=== PATIENT | female | born 2000 | race Caucasian/White ===

== ENCOUNTER 2021-11-12 16:50 | Emergency (ER) | payer BC ==
[~2021-11-12] VITALS: Ht 170.2 cm; Wt 61.0 kg
--- NOTE | 2021-11-12 17:24 | ED Psychosocial ---
General Chief Complaint: Suicidal Ideation Risk Stated Complaint: SUICIDAL IDEATION Source: patient (TAISHA BRISCOE DO) History of Present Illness Date Seen by Provider: Nov 12, 2021 Time Seen by Provider: 16:58 Initial Comments PT ARRIVES VIA POV FROM HOME C/O PANIC ATTACKS AND SUICIDAL IDEATIONS THIS IS ONGOING PROBLEM FOR MANY MONTHS, WORSE SINCE JUNE STATES SHE STARTED WORKING IN JUNE--WORKS AT [employer] NO OTHER STRESSORS PT HAS LONGSTANDING ANXIETY AND STATES HER PANIC ATTACKS HAVE BEEN GETTING WORSE SINCE JUNE, AND WHEN SHE HAS A BAD PANIC ATTACK SHE HAS SOME SUICIDAL IDEATIONS--HAS THOUGHT OF TAKING " MANY PILLS I CAN AND DRINK MUCH WINE I CAN" PT HAS NEVER HAD AN ACTUAL ATTEMPT STATES SHE TAKES UP TO 8 BENADRYL, HYDROXYZINE AND Z-QUIL TO HELP CALM DOWN, BUT STATES SHE DOES NOT TAKE THESE MEDICATIONS TO TRY TO KILL HERSELF. SHE ALSO ADMITS TO USING MARIJUANA ON REGULAR BASIS WELL XANAX ( NOT PRESCRIBED TO HER) SHE ALSO DRINKS WINE DAILY STATES SHE CLENCHES HER JAWS ALL THE TIME STATES SYMPTOMS ARE NO DIFFERENT TONIGHT IN ANY WAY. STATES "I TALKED TO A FRIEND AND SHE SAID IT WAS TIME FOR ME TO GET HELP" HAS NEVER HAD ANY INPATIENT PSYCHIATRIC ADMITS. PT HAS BEEN GOING TO BOTH [facility] HAS BEEN ON LATUDA SINCE JANUARY AND ON ZOLOFT SINCE [facility] AND [facility] ON 10/27/21 LMP--11/11/21. NORMAL. ON OCP'S NO FEVER OR RECENT ILLNESS PT HAS HAD COVID-19 VACCINE PCP: [facility] (TAISHA BRISCOE DO) Allergies and Home Medications Allergies Coded Allergies: Cephalexin (Unverified Allergy, Mild, hives, 03/20/10) Patient Home Medication List Home Medication List Reviewed: Yes (KING TROY MD) Review of Systems Constitutional: no symptoms reported EENTM: no symptoms reported Respiratory: no symptoms reported Cardiovascular: no symptoms reported Gastrointestinal: no symptoms reported Genitourinary: no symptoms reported : No LMP: Nov 11, 2021 Control/STD Prophylaxis: BC Pills Musculoskeletal: no symptoms reported Skin: no symptoms reported Psychiatric/Neurological: See HPI (TAISHA BRISCOE DO) Past Jcydxuw-Livadb-Tufbbw Hx Patient Social History Tobacco Use?: No Use of E-Cig and/or Vaping dev: Yes E-Cig or Vaping type used: Nicotine Use of E-Cig and/or Vaping Frank: Current Everyday User Substance use?: Yes Substance type: Misuse of prescript meds, Marijuana Additional substance use comme: PT REPORTS TAKING SOMEONE ELSE'S XANAX Substance frequency: Daily Alcohol Use?: Yes Alcohol type: Wine Alcohol Frequency: Daily (TAISHA BRISCOE DO) Immunizations Up To Date Influenza Vaccine Up-to-Date: Yes; Up-to-Date First/Initial COVID19 Vaccinat: MARCH 2021 Second COVID19 Vaccination Nate: APRIL 2021 COVID19 Vaccine Classified Advertising Clerk: HENRRY (TAISHA BRISCOE DO) Past Medical History Surgery/Hospitalization HX: BIPOLAR, ANXIETY Surgeries: Yes (WISDOM TEETH, JAW SURGERY CHILD) Respiratory: No Cardiac: No Neurological: No Reproductive Disorders: No Genitourinary: No Gastrointestinal: No Musculoskeletal: No Endocrine: No HEENT: Yes (WISDOM TEETH REMOVED; JAW SURGERY CHILD) Cancer: No Psychosocial: Yes (PANIC ATTACKS) Anxiety, Bipolar Integumentary: No Blood Disorders: No (TAISHA BRISCOE DO) Physical Exam Vital Signs - First Documented 11/12/21 16:57 Temp 37.4 Pulse 112 Resp 22 B/P (MAP) 124/91 (102) Pulse Ox 96 O2 Delivery Room Air (KING TROY MD) Capillary Refill : (TAISHA BRISCOE DO) Height, Weight, BMI Height: '" Weight: lbs. oz. kg; BMI Method: General Appearance: WD/WN, no apparent distress HEENT: PERRL/EOMI, normal ENT inspection, pharynx normal Neck: normal inspection Respiratory: normal breath sounds, no respiratory distress, no accessory muscle use Cardiovascular: regular rate, rhythm, no murmur Gastrointestinal: non tender, soft Extremities: normal inspection Neurologic/Psychiatric: chiropractor assistant II-XII nml as tested, no motor/sensory deficits, alert, oriented x 3 Appearance/Memory: appropriate appearance, appropriate insight, no memory impairment Behavior/Eye Contact: cooperative, good eye contact, normal speech Thoughts/Hallucinations: no apparent hallucination Skin: normal color, warm/dry, tattoos/piercings, other (NO EXTERNAL EVIDENCE OF TRAUMA) (TAISHA BRISCOE DO) Progress/Results/Core Measures Results/Orders Lab Results (KING TROY MD) My Orders Orders - KING TROY MD Nitrofurantoin Capsule,Macro (Macrobid C (11/12/21 23:15) Alprazolam Tablet (Xanax Tablet) (11/13/21 01:30) (KING TROY MD) Medications Given in ED (KING TROY MD) Vital Signs/I&O (KING TROY MD) Progress Progress Note #1: Time: 22:34 Progress Note I assumed care of this patient from Dr. Briscoe at shift change. She was medically cleared and screening was performed by [facility]. The screener's impression is that she was still at significant risk for suicide. Inpatient admission was recommended. Patient needs her daily doses of sertraline, propranolol, and Latuda. She is being dispensed medications from her own supply by nursing staff including sertraline 125 mg, propranolol 10 mg, and Latuda 60 mg. Progress Note #2: Time: 01:30 Progress Note Admission has been accepted at [facility] in [place]. Angela Gerard will transport the patient around 0800. Patient had an episode of panic and was treated with Xanax successfully. There was suggestion of UTI on UA. Macrobid was was given. (KING TROY MD) Initial ECG Impression Date: Nov 12, 2021 Initial ECG Impression Time: 17:17 Initial ECG Rate: 88 Initial ECG Rhythm: Normal Sinus (TAISHA BRISCOE DO) Departure Impression Primary Impression: Passive suicidal ideations Additional Impressions: Chronic anxiety Urinary tract infection Qualified Codes: N39.0 - Urinary tract infection, site not specified Disposition: 65 XFER TO PSYCH HOSP/UNIT Condition: Stable Transfer Transfer Reason: Exceeds level of care Transfer Progress Notes Accepted at [facility] in [place] Transfer Time: 07:54 Transfer Facility: [facility] Method of Transfer: Angela Gerard (KING TROY MD) Departure-Patient Inst. Referrals: NASEEM ROMAN MD (PCP/Family) Primary Care Physician Patient Instructions: OUTPT MENTAL HEALTH SERVICES TAISHA BRISCOE DO Nov 12, 2021 17:24 KING TROY MD Nov 12, 2021 22:35
[2021-11-12 17:29] LABS: BASOPHILS # (AUTO) 0.1 10^3/uL (0.0-0.1); BASOPHILS % (AUTO) 1 % (0-10); CLARITY,URINE CLOUDY; COLOR,URINE YELLOW; EOSINOPHILS # (AUTO) 0.3 10^3/uL (0.0-0.3); EOSINOPHILS % (AUTO) 3 % (0-10); GLUCOSE, URINE (UA) NEGATIVE (NEGATIVE); HEMATOCRIT 42 % (35-52); HEMOGLOBIN 14.5 g/dL (11.5-16.0); KETONES,URINE TRACE (NEGATIVE); LEUKOCYTE ESTERASE ,URINE 1+ (NEGATIVE); LYMPHOCYTES # (AUTO) 2.3 10^3/uL (1.0-4.0); LYMPHOCYTES % (AUTO) 24 % (12-44); MEAN CORPUSCULAR HEMOGLOBIN 31 pg (25-34); MEAN CORPUSCULAR HGB CONC 34 g/dL (32-36); MEAN CORPUSCULAR VOLUME 90 fL (80-99); MEAN PLATELET VOLUME 9.4 fL (9.0-12.2); MONOCYTES # (AUTO) 0.4 10^3/uL (0.0-1.0); MONOCYTES % (AUTO) 5 % (0-12); NEUTROPHILS # (AUTO) 6.3 10^3/uL (1.8-7.8); NEUTROPHILS % (AUTO) 67 % (42-75); NITRITE,URINE NEGATIVE (NEGATIVE); PLATELET COUNT 332 10^3/uL (130-400); PROTEIN,URINE 1+ (NEGATIVE); WHITE BLOOD COUNT 9.4 10^3/uL (4.3-11.0)
[2021-11-12 17:34] LABS: BILIRUBIN,URINE 1+ (NEGATIVE)
[2021-11-12 17:35] LABS: BACTERIA,URINE MODERATE /HPF; RBC,URINE 0-2 /HPF
[2021-11-12 17:40] LABS: ALBUMIN 4.3 GM/DL (3.2-4.5); CHLORIDE 103 MMOL/L (98-107); POTASSIUM 4.3 MMOL/L (3.6-5.0); SODIUM 136 MMOL/L (135-145)
[2021-11-12 17:41] LABS: AMPHETAMINE SCREEN, URINE NEGATIVE (NEGATIVE); BARBITURATE SCREEN URINE NEGATIVE (NEGATIVE); BENZODIAZEPINES SCREEN URINE POSITIVE (NEGATIVE); CALCIUM 9.5 MG/DL (8.5-10.1); CANNABINOID SCREEN, URINE POSITIVE (NEGATIVE); COCAINE SCREEN URINE NEGATIVE (NEGATIVE); METHADONE STAT NEGATIVE (NEGATIVE); METHAMPHETAMINE SCREEN URINE S NEGATIVE (NEGATIVE); OPIATE SCREEN URINE NEGATIVE (NEGATIVE); OXYCODONE STAT NEGATIVE (NEGATIVE); PROPOXYPHENE STAT NEGATIVE (NEGATIVE); TRICYCLIC ANTIDEPRESSANTS SCRE NEGATIVE (NEGATIVE)
[2021-11-12 17:42] LABS: GLUCOSE 105 MG/DL (70-105)
[2021-11-12 17:43] LABS: CARBON DIOXIDE 19 MMOL/L (21-32)
[2021-11-12 17:44] LABS: BILIRUBIN,TOTAL 0.8 MG/DL (0.1-1.0)
[2021-11-12 17:46] LABS: ALKALINE PHOSPHATASE 41 U/L (40-136); CREATININE SERUM 0.72 MG/DL (0.60-1.30); GFR ESTIMATED 103
[2021-11-12 17:47] LABS: BUN/CREATININE RATIO 11
[2021-11-12 17:49] LABS: ALANINE AMINOTRANSFERASE 19 U/L (0-55); SALICYLATE < 5.0 MG/DL (5.0-20.0)
[2021-11-12 17:50] LABS: ACETAMINOPHEN < 10 UG/ML (10-30)
[2021-11-12] MEDS ORDERED: NITROFURANTOIN 100 MG (MACROBID) CAPSULE PO ONE (23:15)
[2021-11-13] MEDS ORDERED: ALPRAZolam 0.25 MG (XANAX) TAB PO ONE (01:30)
[2021-11-13 07:56] VITALS: BP 126/88
== END 2021-11-13 07:54 | disposition short-term general hospital (02) ==
LOC: EDUNIT# 16:50 → ER 16:53
DX: R45.851 Suicidal ideations (principal); F41.0 Panic disorder [episodic paroxysmal anxiety]; N39.0 Urinary tract infection, site not specified; F31.9 Bipolar disorder, unspecified; F17.290 Nicotine dependence, other tobacco product, uncomplicated; Z79.899 Other long term (current) drug therapy
CPT/HCPCS: 80053; 80306; 81000; 84703; 85025; 87088; 87636; 93005; 99283; G0480 ×3; 36415; 80320; 80329